=== PATIENT | female | born 1965 | race Caucasian/White ===

== ENCOUNTER → 2022-09-01 10:11 | Outpatient (BNVA) | payer OTHER, SELFPAY | PROVIDERS: PCP Internal Medicine; Visit Provider Internal Medicine | DX: M48.061 Spinal stenosis, lumbar region without neurogenic claudication (principal) | CPT/HCPCS: 99202 ==

== ENCOUNTER 2022-09-18 13:25 | Outpatient (REF) | payer OTHER, SELFPAY ==
--- NOTE | ~2022-09-18 | MR_ITS ---
EXAMINATION: MR LUMBAR SPINE WITHOUT CONTRAST CLINICAL INFORMATION: Lower back pain, right greater than left leg pain COMPARISON: MRI lumbar spine 06/04/2019 TECHNIQUE: MRI of the lumbar spine was obtained using routine sequences without contrast. FINDINGS: Normal anatomic alignment. No suspicious marrow signal or focal osseous lesion. Mild fatty endplate marrow signal changes involving the anterior L2 and L3 inferior endplates The vertebral body heights are maintained. Mild disc desiccation from L2-L3 to L4-L5 with preservation of disc space height.. The conus medullaris terminates at the level of L1-L2. The distal spinal cord is normal in appearance. The cauda equina nerve roots appear normal. No significant abnormalities of the paraspinal musculature.. Limited evaluation of the intra-abdominal structures without significant abnormalities. The abdominal aorta is of normal contour and caliber. SPINAL LEVELS: L1-L2: No significant spinal canal or neuroforaminal narrowing. L2-L3: No significant spinal canal or neuroforaminal narrowing. L3-L4: No significant spinal canal or neuroforaminal narrowing. Mild facet arthropathy. L4-L5: No significant spinal canal or neuroforaminal narrowing. Shallow disc bulge and moderate left and mild right facet arthropathy. L5-S1: Mild facet arthropathy. No significant spinal canal or neural foraminal narrowing. Stable near effacement of the thecal sac related to circumferential epidural fat. MR/MR lumbar spine wo con IMPRESSION: Stable examination with mild degenerative changes of the lumbar spine without degenerative canal or neural foraminal stenosis or evidence of nerve impingement. There is stable prominent circumferential epidural fat at L5-S1 which effaces the thecal sac.
== END 2022-09-18 13:26 | disposition home or self-care (01) ==
LOC: HO.MRI 13:25
PROVIDERS: Visit Provider Internal Medicine
DX: M48.061 Spinal stenosis, lumbar region without neurogenic claudication (principal)
CPT/HCPCS: 72148

== ENCOUNTER → 2022-09-29 09:54 | Outpatient (BNVA) | payer OTHER, SELFPAY | PROVIDERS: Visit Provider Internal Medicine | DX: M54.16 Radiculopathy, lumbar region (principal) | CPT/HCPCS: 99212 ==

== ENCOUNTER → 2022-10-17 09:20 | Outpatient (BNVA) | payer OTHER, SELFPAY | PROVIDERS: Visit Provider Internal Medicine ==